=== PATIENT | female | born 1970 | race Caucasian/White ===

== ENCOUNTER 2017-01-27 13:58 | Emergency (ER) | payer BC ==
[2017-01-27 14:07] VITALS: RESP 16; TEMP 97.3
[2017-01-27] MEDS ORDERED: KETOROLAC 30 MG/ML 1 ML VIAL IVP STA (14:27)
[2017-01-27] MEDS ORDERED: diphenhydrAMINE 50 MG/ML 1 ML VIAL IVP STA (14:27)
[2017-01-27] MEDS ORDERED: METOCLOPRAMIDE 5 MG/ML 2 ML VIAL IVP STA (14:27)
[2017-01-27] MEDS ORDERED: SODIUM CHLORIDE 0.9% 1,000 ML IV STA (14:27)
--- NOTE | 2017-01-27 14:36 | ED ---
General Adult HPI - General Chief complaint: Headache Stated complaint: Headache Time Seen by Provider: 01/27/17 14:12 Source: patient, family, RN notes reviewed Mode of arrival: wheelchair Limitations: no limitations - History of Present Illness Initial comments: Patient is a pleasant 46-year-old female presenting to the emergency Department with complaints of headache. Onset of headache was Tuesday. Headache started gradually and worsened. Symptoms improved with sleep and then worsened again on Tuesday. Headache is mostly persistent however does improve with rest and sleeping. Patient was able [place] go [place] the [place] however symptoms worsen again following that. Patient has headache bilateral frontal region. Patient does have associated nausea and has been vomiting today. No fevers. No neck stiffness. Patient does have a history of chronic headaches. Patient has had previous head CT and has seen a doctor previously for headaches. Patient states normally Motrin helps for her headaches. Patient also recently went to [facility] and did have another computed tomography scan of her head and blood work done which were reported as normal. Patient was given fluids and released. Patient states symptoms are similar to previous headaches however more severe than normal. Patient has associated lightheadedness and photophobia and nausea and vomiting. Patient states when symptoms get bad she feels like she is going to pass out. Patient has not had a syncopal episode. Onset was gradual. - Related Data Previous Rx's Medication Instructions Recorded Metoclopramide HCl [Reglan] 10 mg PO Q6HR PRN #15 tablet 01/27/17 Allergies Allergy/AdvReac Type Severity Reaction Status Date / Time gabapentin [From Neurontin] Allergy Unknown Verified 01/27/17 14:39 hydrocodone bitartrate Allergy Unknown Verified 01/27/17 14:39 [From Vicodin] morphine Allergy Unknown Verified 01/27/17 14:39 raspberry Allergy Rash/Hives Verified 01/27/17 14:39 Review of Systems ROS Statement: Those systems with pertinent positive or pertinent negative responses have been documented in the HPI. ROS Other: All systems not noted in ROS Statement are negative. Constitutional: Denies: fever Eyes: Denies: eye pain ENT: Denies: ear pain Respiratory: Denies: cough Cardiovascular: Denies: chest pain Endocrine: Denies: fatigue Gastrointestinal: Reports: nausea, vomiting. Denies: abdominal pain Genitourinary: Denies: dysuria Musculoskeletal: Denies: back pain Skin: Denies: rash Neurological: Reports: headache. Denies: weakness, confusion Past Medical History Additional Past Medical History / Comment(s): degenerative disk disease, right heart valve leak History of Any Multi-Drug Resistant Organisms: None Reported Past Surgical History: Breast Surgery, Hernia Repair, Tubal Ligation Additional Past Surgical History / Comment(s): D&C Past Psychological History: No Psychological Hx Reported Smoking Status: Current every day smoker Past Alcohol Use History: None Reported Past Drug Use History: None Reported General Exam Limitations: no limitations General appearance: alert, in no apparent distress Head exam: Present: atraumatic, normocephalic Eye exam: Present: normal appearance, PERRL, EOMI. Absent: nystagmus ENT exam: Present: normal oropharynx Neck exam: Present: normal inspection. Absent: tenderness, meningismus Respiratory exam: Present: normal lung sounds bilaterally Cardiovascular Exam: Present: regular rate, normal rhythm GI/Abdominal exam: Present: soft. Absent: tenderness Extremities exam: Present: normal inspection Neurological exam: Present: alert, CN II-XII intact. Absent: motor sensory deficit Expanded Speech: Present: fluid speech Cranial nerves: EOM's Intact: Normal, Facial Sensation: Normal Cerebellar function: Finger to Nose: Normal Sensory exam: Upper Extremity Light Touch: Normal, Lower Extremity Light Touch: Normal Motor strength exam: RUE: 5, LUE: 5, RLE: 5, LLE: 5 Eye Response: (4) open spontaneously Motor Response: (6) obeys commands Verbal Response: (5) oriented Psychiatric exam: Present: normal affect, normal mood Skin exam: Present: normal color Course Vital Signs 01/27/17 14:04 Temperature 97.3 F L Pulse Rate 60 Respiratory 16 Rate Blood Pressure 117/77 O2 Sat by Pulse 97 Oximetry Medical Decision Making - Medical Decision Making Patient reexamined and resting comfortably in bed. Patient states she does feel much better and headache is tolerable. Patient and family updated on need for follow-up. Patient is comfortable with discharge. Disposition Clinical Impression: Headache Disposition: HOME SELF-CARE Condition: Stable Instructions: Acute Headache (ED) Additional Instructions: Please follow-up with your Dr. in the next day or 2 for recheck. Return for passing out, fevers, weakness or confusion, worsening symptoms or other concerns. Prescriptions: Metoclopramide HCl [Reglan] 10 mg PO Q6HR PRN #15 tablet PRN Reason: Nausea Referrals: Seamus Ellison MD [Primary Care Provider] - 1-2 days Time of Disposition: 15:33
[2017-01-27 15:44] VITALS: BP 112/78; PULSE 72
== END 2017-01-27 15:43 | disposition home or self-care (01) ==
LOC: EC 13:58
DX: R51 Headache (principal); R11.2 Nausea with vomiting, unspecified; R42 Dizziness and giddiness; H53.149 Visual discomfort, unspecified; R40.2142 Coma scale, eyes open, spontaneous, at arrival to emergency department; R40.2252 Coma scale, best verbal response, oriented, at arrival to emergency department; R40.2362 Coma scale, best motor response, obeys commands, at arrival to emergency department; F17.200 Nicotine dependence, unspecified, uncomplicated; Z88.5 Allergy status to narcotic agent; Z88.8 Allergy status to other drugs, medicaments and biological substances; Z91.018 Allergy to other foods
CPT/HCPCS: 99283; 96374; 96375 ×2; 96361; J1200; J2765; J1885